=== PATIENT | male | born 1990 | race Caucasian/White ===

== ENCOUNTER 2023-09-02 19:24 | Emergency (ER) | payer OTHER ==
[2023-09-02 19:32] VITALS: BP 107/69; PULSE 76; RESP 17; TEMP 97.8; BMI 23.7
[2023-09-02] MEDS ORDERED: IBUPROFEN 600 MG TABLET (FP) PO ONE ×2 (20:40→20:52)
== END 2023-09-02 20:53 | disposition home or self-care (01) ==
LOC: JERFT 19:24
DX: M25.511 Pain in right shoulder (principal); V49.50XA Passenger injured in collision with unspecified motor vehicles in traffic accident, initial encounter
CPT/HCPCS: 99283-25